=== PATIENT | male | born 1945 | race Caucasian/White ===

== ENCOUNTER 2017-02-02 19:47 | Emergency (ER) | payer MEDICARE, OTHER ==
[~2017-02-02] VITALS: Ht 177.8 cm; Wt 82.7 kg
[~2017-02-02 19:47] MED LIST: ALEVE220 MG PO; ASPIRIN E.C. 8181 MG PO; CENTRUM SILVER1 TA1 PO; FLOMAX0.4 MG PO; LUTEIN + KALE 11 CAP PO; MOTRIN 200200 MG/TAB PO; NEXIUM 40MG40 MG PO; NEXIUM40 MG PO; NIASPAN750 MG PO; PLAVIX 75MG TAB75 MG PO; PRINIVIL20 MG PO; SYNTHROID 0.0.025 MG PO
[2017-02-02 19:59] VITALS: TEMP 97.8
[2017-02-02 21:45] VITALS: BP 140/77; PULSE 57
== END 2017-02-02 21:50 | disposition home or self-care (01) ==
LOC: COL.ER 19:47
DX: S61.411A Laceration without foreign body of right hand, initial encounter (principal); W45.8XXA Other foreign body or object entering through skin, initial encounter; Z23 Encounter for immunization; Z79.02 Long term (current) use of antithrombotics/antiplatelets

== ENCOUNTER 2018-09-16 07:42 | Day surgery (SDC) | payer MEDICARE, OTHER ==
[~2018-09-16] VITALS: Ht 177.8 cm; Wt 87.0 kg
[2018-09-16] VITALS (8 sets, daily range): BP systolic 147–164; BP diastolic 65–80; PULSE 49–56; TEMP 97.1–97.2
[2018-09-16] MEDS ORDERED: ASPI325T6 PO (08:51)
[2018-09-16] MEDS ORDERED: CENTRUM SILVER1 TAB PO (08:52)
[2018-09-16] MEDS ORDERED: PRINIVIL10 MG PO (08:53)
[2018-09-16] MEDS ORDERED: NIASPAN1000 MG PO (08:54)
[2018-09-16] MEDS ORDERED: PRESERVISIONLUT PO (08:55)
[2018-09-16] MEDS ORDERED: FLOMAX 0.40.4 MG/CAP PO (08:56)
[2018-09-16] MEDS ORDERED: ZANTAC 150MG T150 MG PO (08:56)
[2018-09-16] MEDS ORDERED: FLORAJEN A20 Billion PO (08:57)
[2018-09-16] MEDS ORDERED: SYNTHROID0.05 MG/TA PO (08:58)
[2018-09-16] MEDS ORDERED: NORCO 325 MG-51 TAB PO (14:34)
== END 2018-09-16 15:13 | disposition home or self-care (01) ==
LOC: SDCO 07:42
DX: K40.90 Unilateral inguinal hernia, without obstruction or gangrene, not specified as recurrent (principal); I10 Essential (primary) hypertension; Z79.82 Long term (current) use of aspirin; Z79.899 Other long term (current) drug therapy; E78.5 Hyperlipidemia, unspecified; E03.9 Hypothyroidism, unspecified; N40.0 Benign prostatic hyperplasia without lower urinary tract symptoms; Z86.73 Personal history of transient ischemic attack (TIA), and cerebral infarction without residual deficits; I25.10 Atherosclerotic heart disease of native coronary artery without angina pectoris; J44.9 Chronic obstructive pulmonary disease, unspecified; K21.9 Gastro-esophageal reflux disease without esophagitis; K44.9 Diaphragmatic hernia without obstruction or gangrene; D69.6 Thrombocytopenia, unspecified
CPT/HCPCS: C1781; J0690; J1100; J2405; J2704; J3010; J7120

== ENCOUNTER 2021-03-28 06:43 | Observation (INO) | payer MEDICARE, OTHER ==
[2021-03-28] VITALS (34 sets, daily range): BP systolic 115–193; BP diastolic 68–119; PULSE 43–56; TEMP 97.3–97.9
[~2021-03-28] VITALS: Ht 177.8 cm; Wt 89.2 kg
[~2021-03-28 06:43] MED LIST changes: +ASPI325T6 PO; +CENTRUM SILVER1 TAB PO; +FLOMAX 0.40.4 MG/CAP PO; +FLORAJEN A20 Billion PO; +NIASPAN1000 MG PO; +NORCO 325 MG-51 TAB PO; +PRESERVISIONLUT PO; +PRINIVIL10 MG PO; +PROTONIX 40MG T40 MG PO; +SYNTHROID0.05 MG/TA PO; +ZANTAC 150MG T150 MG PO
--- NOTE | 2021-03-28 08:00 | NUR ---
PT TAKEN TO CT ROOM IN WHEELCHAIR. PLACED ON TABLE IN POSITION.
--- NOTE | 2021-03-28 14:10 | NUR ---
PT BROUGHT INTO CT AND POSITIONED IN TABLE. MONITORING EQUIPMENT PLACED
--- NOTE | 2021-03-28 14:14 | NUR ---
Pt back to radiology for chest tube placement.report to MACIEL Mckeon.
--- NOTE | 2021-03-28 15:45 | NUR ---
Patient has arrived to room 315, present, vital signs stable, he dnies pain, right side Heimlich chest tube dressing C/D/I, will contact hospitalist for orders
--- NOTE | 2021-03-28 20:30 | NUR ---
Initial shift assessment done, denies pain, denies SOB, is on 2L/nc for comfort. Tele on, SCD,s put on pt at this time, Has heimlich valve chest tube to right anterior chest-dressing dry and intact.
--- NOTE | 2021-03-29 00:05 | NUR ---
Tylenol given at this time- pt just cannot get comfortable- having pain to chest tube site 01/17. B/P 174/79-Apresoline IV given as ordered .
[2021-03-29 03:02] VITALS: BP 149/73; PULSE 49; TEMP 97.2
--- NOTE | 2021-03-29 03:05 | NUR ---
B/P 149/73, Up to bathroom with assist.
--- NOTE | 2021-03-29 05:41 | NUR ---
Quiet night-has been sleeping for just the past 1-2 hours--Tele on-heart rate 42-65/min. Heimlich chest tube remains intact to right interior chest.
[2021-03-29 08:29] VITALS: BP 162/80; PULSE 100; TEMP 97.7
--- NOTE | 2021-03-29 08:29 | NUR ---
Assessment completed, alert/oriented, vitals signs stable, a little sore but overall denies any significant pain, right upper chest tube site looks good/ dressing C/D/I, no resp.difficulty and lungs CTA/ diminshed in his RLL, he is feeling pretty well overall and sitting at edge of the bed, hoping to be discharged home, morning meds given, eating breakfast and rajan othr needs at this time
--- NOTE | 2021-03-29 08:55 | NUR ---
Farm Management Teacher attended clinical rounds with the team. The patient lives at home with his spouse and plans to return home at discharge.
--- NOTE | 2021-03-29 09:19 | NUR ---
Initial visit; Patient thanked Post Doctoral Researcher for looking in on him and offering God's blessings.
--- NOTE | 2021-03-29 13:00 | NUR ---
Chest tube removed at this time per Hospitalist verbal order, instructed patient on [place] manuever and CT removed without complications, no resp.difficulty noted post removal and VS stable, will get CXR in 1 hour post removal at 1400
[2021-03-29] MEDS ORDERED: PRINIVIL40 MG PO (14:25)
--- NOTE | 2021-03-29 14:57 | NUR ---
CXR s/p chest tube removal looked good/ NO pneumothorax observed, vital signs stable, patient comfortable, I notfied hospitalist and we will proceed with discahrge, I have discussed discarge orders with patient and his , instructed to follow up with PCP as we have scheduled, I removed his IV and tele, he is ambulatory and I will escort them out the door
== END 2021-03-29 15:00 | disposition home or self-care (01) ==
LOC: COL.RAD 06:43 → MEDICAL 16:00
PROVIDERS: ADMIT Emergency Medicine
DX: C34.11 Malignant neoplasm of upper lobe, right bronchus or lung (principal); J95.811 Postprocedural pneumothorax; I10 Essential (primary) hypertension; I25.10 Atherosclerotic heart disease of native coronary artery without angina pectoris; E78.5 Hyperlipidemia, unspecified; N40.0 Benign prostatic hyperplasia without lower urinary tract symptoms; K21.9 Gastro-esophageal reflux disease without esophagitis; E03.9 Hypothyroidism, unspecified; Z79.82 Long term (current) use of aspirin; Z79.890 Hormone replacement therapy; Z79.899 Other long term (current) drug therapy; Z87.891 Personal history of nicotine dependence; Z86.19 Personal history of other infectious and parasitic diseases; Z95.828 Presence of other vascular implants and grafts
CPT/HCPCS: 99222-AI; 99239; G0378; G0379; J0360; J3010

== ENCOUNTER 2021-07-30 11:48 | Outpatient (CLI) | payer MEDICARE, OTHER ==
[~2021-07-30] VITALS: Ht 177.8 cm; Wt 81.0 kg
[2021-07-30] VITALS (8 sets, daily range): BP systolic 144–168; BP diastolic 54–81; PULSE 39–57; TEMP 97.3–98.1
[~2021-07-30 11:48] MED LIST changes: +PRINIVIL40 MG PO
[2021-07-30] MEDS ORDERED: ZESTRIL40 MG PO (15:18)
--- NOTE | 2021-07-30 17:40 | NUR ---
Pt tolerated his blood transfusions with no evidence of allergic or adverse reaction. Port flushed with 20cc saline and a heparin flush prior to deaccessing port. site covered with bandaid. I walked with pt and to exit, he had a steady gait.
== END 2021-07-30 18:09 | disposition home or self-care (01) ==
LOC: EUO 11:48
DX: C34.11 Malignant neoplasm of upper lobe, right bronchus or lung (principal); D64.9 Anemia, unspecified
CPT/HCPCS: J1644; J7050; P9016

== ENCOUNTER 2021-08-21 20:17 | Emergency (ER) | payer MEDICARE, OTHER ==
[~2021-08-21] VITALS: Ht 175.3 cm; Wt 84.5 kg
[~2021-08-21 20:17] MED LIST changes: +ZESTRIL40 MG PO
[2021-08-21 20:24] VITALS: TEMP 97.8
[2021-08-21] MEDS ORDERED: AMOXICILLIN 8751 TAB PO (22:59)
[2021-08-22 00:08] VITALS: BP 122/70; PULSE 76
== END 2021-08-22 00:08 | disposition home or self-care (01) ==
LOC: COL.ER 20:17
DX: S61.250A Open bite of right index finger without damage to nail, initial encounter (principal); J93.9 Pneumothorax, unspecified; R20.2 Paresthesia of skin; I10 Essential (primary) hypertension; I25.10 Atherosclerotic heart disease of native coronary artery without angina pectoris; Z79.82 Long term (current) use of aspirin; Z79.899 Other long term (current) drug therapy; Z20.3 Contact with and (suspected) exposure to rabies; W55.81XA Bitten by other mammals, initial encounter

== ENCOUNTER 2021-08-24 15:26 | Outpatient (RCR) | payer MEDICARE, OTHER ==
[~2021-08-24] VITALS: Ht 175.3 cm; Wt 84.1 kg
[~2021-08-24 15:26] MED LIST changes: +AMOXICILLIN 8751 TAB PO
[2021-08-24 16:18] VITALS: BP 178/80; PULSE 50; TEMP 98.4
== END 2021-11-09 | disposition home or self-care (01) ==
LOC: EUO → COL.ER 15:26 → EUO 15:26
DX: S61.411A Laceration without foreign body of right hand, initial encounter (principal); R20.2 Paresthesia of skin; J93.9 Pneumothorax, unspecified; S61.259A Open bite of unspecified finger without damage to nail, initial encounter

== ENCOUNTER 2021-08-28 09:23 | Outpatient (RCR) | payer MEDICARE, OTHER ==
[2021-09-04 11:55] VITALS: BP 158/73; PULSE 46; TEMP 98
== END 2021-11-09 | disposition home or self-care (01) ==
LOC: EUO
DX: S61.411A Laceration without foreign body of right hand, initial encounter (principal); Z20.3 Contact with and (suspected) exposure to rabies; W55.81XA Bitten by other mammals, initial encounter

== ENCOUNTER → 2021-09-21 | Outpatient (CLI) | payer MEDICARE, OTHER ==
[2021-09-21 11:53] LABS: CREATININE, serum 1.24 mg/dL (0.72-1.25)
== END ==
LOC: COL.LAB 11:19
DX: Z98.890 Other specified postprocedural states (principal)

== ENCOUNTER → 2021-09-24 | Outpatient (CLI) | payer MEDICARE, OTHER | LOC: COL.RAD 06:56 | DX: K57.30 Diverticulosis of large intestine without perforation or abscess without bleeding (principal); I70.0 Atherosclerosis of aorta; I71.9 Aortic aneurysm of unspecified site, without rupture; Z98.890 Other specified postprocedural states | CPT/HCPCS: Q9967 ==

== ENCOUNTER → 2021-11-27 | Outpatient (CLI) | payer MEDICARE, OTHER | LOC: COL.RAD 10:23 | DX: I71.3 Abdominal aortic aneurysm, ruptured (principal); N26.1 Atrophy of kidney (terminal); Z90.49 Acquired absence of other specified parts of digestive tract | CPT/HCPCS: Q9967 ==

== ENCOUNTER → 2022-01-30 | Outpatient (CLI) | payer MEDICARE, OTHER | LOC: COL.RAD 07:31 | DX: C34.11 Malignant neoplasm of upper lobe, right bronchus or lung (principal); G31.9 Degenerative disease of nervous system, unspecified; I67.82 Cerebral ischemia | CPT/HCPCS: A9575 ==

== ENCOUNTER 2022-02-14 07:15 | Outpatient (CLI) | payer MEDICARE, OTHER ==
[~2022-02-14] VITALS: Ht 175.3 cm; Wt 82.6 kg
[~2022-02-14 07:15] MED LIST changes: -ASPI325T6 PO; +ZESTRIL2.5 MG PO; -ZESTRIL40 MG PO
[2022-02-14 07:58] LABS: HEMOGLOBIN 11.1 g/dl (13.5-18.0); MEAN CELL VOLUME 94 fl (80.0-100.0); MEAN CORPUSCULAR HEMOGLOBIN 32 pg (27-31); MEAN CORPUSCULAR HGB CONC 34 g/dl (33.0-37.0); MEAN PLATELET VOLUME 9.5 fl (7.4-10.4); PLATELET COUNT 103 K/mm3 (130-400); RED BLOOD COUNT 3.45 M/mm3 (4.20-5.60); REDCELL DISTRIBUTION WIDTH-CV 14.4 % (11.5-14.5)
[2022-02-14 07:59] LABS: HEMATOCRIT 32.3 % (42.0-52.0)
[2022-02-14 08:00] VITALS: BP 158/89; PULSE 49; TEMP 97.8
[2022-02-14 08:12] LABS: PROTHROMBIN TIME 11.6 SECONDS (9.7-12.8)
[2022-02-14 08:14] LABS: CALCIUM 8.6 mg/dL (8.4-10.2); CREATININE, serum 1.25 mg/dL (0.72-1.25); POTASSIUM 3.9 mmol/L (3.5-4.5)
[2022-02-14] MEDS ORDERED: CRESTOR 10MG10 MG PO (08:31)
[2022-02-14] MEDS ORDERED: TYLENOL 500MG500 MG PO (08:32)
[2022-02-14 10:05] VITALS: BP 157/86; PULSE 44
--- NOTE | 2022-02-14 10:05 | NUR ---
This RN was with pt during procedure along with Adelita RN. Pt tolerated procedure well, and pt is now resting comfortably, awake and alert, is conversant. no problems swallowing secretions. Pt had no problems with icechips and water. back to bedside. pt and aware of poc, with discharge in approx 1 hour.
[2022-02-14 10:15] VITALS: BP 186/88; PULSE 50
[2022-02-14 10:30] VITALS: BP 176/81; PULSE 43
[2022-02-14 11:00] VITALS: BP 170/82; PULSE 45
--- NOTE | 2022-02-14 11:36 | NUR ---
Dr. Amador did come back in to speak with pt prior to his discharge. Per orders, pt was given a 5 mg lisinopril tab per orders to treat his elevated bp. I reviewed dc/fu instructions with pt andhis , they both verbalize understanding of plan of care. Pt has been ambulatory around nurses station with steady gait. IV dc'd with cath intact, dressing applied. to exit via wheelchair at 1110.
== END 2022-02-14 11:44 | disposition home or self-care (01) ==
LOC: COL.RAD 07:15
PROVIDERS: Internal Medicine Adult Congenital Heart Disease
DX: I08.0 Rheumatic disorders of both mitral and aortic valves (principal)
CPT/HCPCS: J2370; J2704; J3010

== ENCOUNTER → 2022-05-07 | Outpatient (CLI) | payer MEDICARE, OTHER ==
[~2022-05-07] MED LIST changes: +CRESTOR 10MG10 MG PO; +TYLENOL 500MG500 MG PO
== END ==
LOC: COL.RAD 08:11
DX: C34.11 Malignant neoplasm of upper lobe, right bronchus or lung (principal); G31.9 Degenerative disease of nervous system, unspecified; I67.82 Cerebral ischemia
CPT/HCPCS: A9575